=== PATIENT | male | born 1975 | race Caucasian/White ===

== ENCOUNTER → 2019-04-12 | Outpatient (CLI) | payer MEDICARE ==
[~2019-04-12] MED LIST: AMLODIPINE10 MG PO; AMLODIPINE5 MG PO; ATROVASTIN; DEPAKOTE DR500 MG PO; FENOFIBRATE134 MG PO; FENOGLIDE40 MG PO; HYDR25T PO; KEFLEX500 MG PO; LATU80TA PO; LIPITOR20 MG PO; LISINOPRIL10 MG PO; LOTREL 10 MG-201 CAP PO; LUVOX CR100 MG PO; NAVANE10 MG PO; OMEPRAZOLE D/R20 MG PO; REGLAN10 MG PO; THIOTHIXENE10 MG PO; TRAMADOL HCL50 MG PO; VALIUM10 MG PO; VITAMIN D1000 IU PO; VITAMIN D32000 IU PO; ZYPREXA20 MG PO
== END | disposition home or self-care (01) ==
LOC: US 03-09 13:30
DX: N43.2 Other hydrocele (principal); N43.42 Spermatocele of epididymis, multiple; N50.3 Cyst of epididymis

== ENCOUNTER 2023-06-18 08:04 | Emergency (ER) | payer MEDICARE, MEDICAID ==
[~2023-06-18] VITALS: Wt 77.1 kg
[2023-06-18 09:18] VITALS: BP 99/79
[2023-06-18] MEDS ORDERED: Ketorolac Tromethamine 60 MG/2 ML VIAL IM ONE (09:25)
[2023-06-18] MEDS ORDERED: ACETAMINOPHEN 325 MG TAB PO ONE (09:25)
[2023-06-18] MEDS ORDERED: CYCLOBENZAPRINE10 MG PO (10:55)
[2023-06-18] MEDS ORDERED: Motrin,Rufen800 MG PO (10:55)
== END 2023-06-18 11:04 | disposition home or self-care (01) ==
LOC: ED 08:04
DX: S46.912A Strain of unspecified muscle, fascia and tendon at shoulder and upper arm level, left arm, initial encounter (principal); I10 Essential (primary) hypertension; K21.9 Gastro-esophageal reflux disease without esophagitis; F31.9 Bipolar disorder, unspecified; Z88.0 Allergy status to penicillin; X58.XXXA Exposure to other specified factors, initial encounter; Y93.89 Activity, other specified; Y92.89 Other specified places as the place of occurrence of the external cause; Y99.8 Other external cause status

== ENCOUNTER → 2023-11-04 | Outpatient (CLI) | payer MEDICARE, MEDICAID ==
[~2023-11-04] MED LIST changes: +CYCLOBENZAPRINE10 MG PO; +Motrin,Rufen800 MG PO
[2023-11-04 17:42] LABS: POTASSIUM 3.8 mmol/L (3.4-5.1); TOTAL PROTEIN 7.4 gm/dL (6.0-8.0)
[2023-11-05 06:09] LABS: TOTAL PROTEIN, SERUM 7.1 g/dL (6.0-8.5)
[2023-11-05 13:07] LABS: A/G RATIO 1.1 (0.7-1.7); ALBUMIN 3.7 g/dL (2.9-4.4); ALPHA-1-GLOBULIN 0.2 g/dL (0.0-0.4); BETA GLOBULIN 1.1 g/dL (0.7-1.3); GAMMA GLOBULIN 1.1 g/dL (0.4-1.8); GLOBULIN, TOTAL 3.4 g/dL (2.2-3.9)
[2023-11-05 14:08] LABS: ANTI-DSDNA ANTIBODIES 6 IU/mL (0-9); ATYPICAL pANCA <1:20 titer (Neg:<1:20); CYTOPLASMIC (C-ANCA) <1:20 titer (Neg:<1:20); PERINUCLEAR (P-ANCA) <1:20 titer (Neg:<1:20)
[2023-11-05 16:09] LABS: FREE KAPPA LIGHT CHAINS 32.9 mg/L (3.3-19.4); FREE LAMBDA LIGHT CHAINS 62.4 mg/L (5.7-26.3); KAPPA/LAMBDA RATIO 0.53 (0.26-1.65)
[2023-11-06 20:06] LABS: ANTI MPO ANTIBODIES <0.2 units (0.0-0.9); ANTI PR3 ANTIBODIES <0.2 units (0.0-0.9)
[2023-11-07 11:07] LABS: ALBUMIN, URINE 84.5 % (.); ALPHA-1-GLOBULIN, URINE 1.7 % (.); ALPHA-2-GLOBULIN, URINE 1.4 % (.); BETA GLOBULIN, URINE 7.8 % (.); GAMMA GLOBULIN, URINE 4.6 % (.); M-SPIKE, % Not Observed % (Not Observed); PROTEIN,TOTAL - URINE RANDOM 280.3 mg/dL (Not Estab.)
== END | disposition home or self-care (01) ==
LOC: LAB 16:45
PROVIDERS: ATTEND Internal Medicine Nephrology
DX: E78.5 Hyperlipidemia, unspecified (principal); R80.9 Proteinuria, unspecified

== ENCOUNTER → 2023-11-07 | Outpatient (CLI) | payer MEDICARE, MEDICAID | END | disposition home or self-care (01) | LOC: US 01:01 | PROVIDERS: ATTEND Internal Medicine Nephrology | DX: N42.89 Other specified disorders of prostate (principal); N18.32 Chronic kidney disease, stage 3b; E83.9 Disorder of mineral metabolism, unspecified; N32.89 Other specified disorders of bladder; Z96.0 Presence of urogenital implants ==

== ENCOUNTER 2024-02-09 14:22 | Inpatient (IN) | payer MEDICARE ==
[~2024-02-09] VITALS: Ht 170.1 cm; Wt 73.7 kg
[2024-02-09 15:28] LABS: BASO # 0.1 10*3/uL (0.0-0.1); BASO % 0.7 % (0.0-1.0); EOS # 0.2 10*3/uL (0.0-0.4); EOS % 2.4 % (1.0-4.0); HEMATOCRIT 37.8 % (42.0-52.0); LYMPH # 2.5 10*3/uL (1.3-4.4); LYMPH % 30.5 % (27.0-41.0); MEAN CELL VOLUME 96.7 fl (80.0-94.0); MEAN CORPUSCULAR HGB 30.4 pg (27.0-31.0); MEAN CORPUSCULAR HGB CONC 31.5 g/dl (33.0-37.0); MONO # 0.6 10*3/uL (0.1-1.0); MONO % 6.6 % (3.0-9.0); NEUT % 59.7 % (47.0-73.0); PLATELET COUNT AUTOMATED 233 10*3/uL (130-400); RED BLOOD COUNT 3.91 10*6/uL (4.50-5.90); RED CELL DISTRI WIDTH 14.7 % (0-14.5); WHITE BLOOD COUNT 8.3 10*3/uL (4.8-10.8)
[2024-02-09 15:54] LABS: POTASSIUM 6.1 mmol/L (3.4-5.1)
[2024-02-09 16:04] LABS: VENOUS BLOOD GAS O2 SAT 99.1 % (60.0-85.0)
[2024-02-09] MEDS ORDERED: Albuterol Sulfate 2.5 MG/3 ML VIAL NEB ONE (16:05)
[2024-02-09] MEDS ORDERED: CALCIUM GLUCONATE 1 GM/10 ML VIAL IV ONE (16:05)
[2024-02-09] MEDS ORDERED: DEXTROSE 50% 25 GM/50 ML SYR IV ONE (16:05)
[2024-02-09] MEDS ORDERED: INSULIN REGULAR, HUMAN 1 UNIT/0.01 ML IV ONE (16:05)
[2024-02-09 17:05] VITALS: BP 120/70
[2024-02-09] MEDS ORDERED: ATORVASTATIN CA10 M1 PO (17:06)
[2024-02-09] MEDS ORDERED: ARIPIPRAZOLE15 MG PO (17:06)
[2024-02-09] MEDS ORDERED: LEVOTHYROXINE100 MC1 PO (17:06)
[2024-02-09] MEDS ORDERED: DIVALPROEX SOD500 M1 PO (17:07)
[2024-02-09] MEDS ORDERED: LISINOPRIL10 M1 PO (17:07)
[2024-02-09] MEDS ORDERED: BISACODYL 5 MG TAB PO PRN (17:10)
[2024-02-09] MEDS ORDERED: ACETAMINOPHEN 650 MG SUPP R PRN (17:10)
[2024-02-09] MEDS ORDERED: Magnesium Hydroxide 30 ML UDC PO PRN (17:10)
[2024-02-09] MEDS ORDERED: Ondansetron Hydrochloride 4 MG/2 ML VIAL IV PRN (17:10)
[2024-02-09] MEDS ORDERED: ACETAMINOPHEN 325 MG TAB PO PRN (17:10)
[2024-02-09] MEDS ORDERED: SODIUM POLYSTYRENE SULFONATE 15 GM/60 ML BOT PO ONE (17:30)
[2024-02-09 19:06] VITALS: BP 128/60
[2024-02-09 21:15] VITALS: BP 130/86
[2024-02-09] MEDS ORDERED: DIAZEPAM10 M1 PO (21:16)
[2024-02-09] MEDS ORDERED: LACTULOSE 20 GM/30 ML UDC PO ONE (22:40)
[2024-02-09] MEDS ORDERED: FUROSEMIDE 20 MG/2 ML VIAL IV ONE (22:40)
[2024-02-09] MEDS ORDERED: DIVALPROEX ER 500 MG TAB PO SCH (23:00)
[2024-02-09] MEDS ORDERED: ATORVASTATIN CALCIUM 10 MG TAB PO SCH (23:00)
[2024-02-09] MEDS ORDERED: DIAZEPAM 5 MG TAB PO SCH (23:00)
[2024-02-10] VITALS: BP 140/86
[2024-02-10 05:44] LABS: POTASSIUM 4.9 mmol/L (3.4-5.1); TOTAL PROTEIN 7.2 gm/dL (6.0-8.0)
[2024-02-10] MEDS ORDERED: Levothyroxine Sodium 100 MCG TAB PO SCH (06:00)
[2024-02-10 06:14] LABS: BASO % 0.5 % (0.0-1.0); EOS # 0.3 10*3/uL (0.0-0.4); EOS % 3.4 % (1.0-4.0); HEMATOCRIT 38.4 % (42.0-52.0); LYMPH # 2.4 10*3/uL (1.3-4.4); LYMPH % 28.7 % (27.0-41.0); MEAN CELL VOLUME 96.2 fl (80.0-94.0); MEAN CORPUSCULAR HGB 31.3 pg (27.0-31.0); MEAN CORPUSCULAR HGB CONC 32.6 g/dl (33.0-37.0); MEAN PLATELET VOLUME 9.5 fl (9.6-12.3); MONO # 0.6 10*3/uL (0.1-1.0); MONO % 7.3 % (3.0-9.0); NEUT % 59.9 % (47.0-73.0); PLATELET COUNT AUTOMATED 247 10*3/uL (130-400); RED BLOOD COUNT 3.99 10*6/uL (4.50-5.90); RED CELL DISTRI WIDTH 14.9 % (0-14.5); WHITE BLOOD COUNT 8.4 10*3/uL (4.8-10.8)
[2024-02-10 07:56] LABS: VITAMIN D, 25-HYDROXY 49.7 ng/mL (30-100)
[2024-02-10 08:00] VITALS: BP 172/68
[2024-02-10] MEDS ORDERED: Enoxaparin Sodium 40 MG/0.4 ML SYR SC SCH (10:00)
[2024-02-10] MEDS ORDERED: ARIPiprazole 15 MG TAB PO SCH (10:00)
[2024-02-10] MEDS ORDERED: ATORVASTATIN CALCIUM 10 MG TAB PO SCH ×2 (10:00→22:00)
[2024-02-10] MEDS ORDERED: Enoxaparin Sodium 30 MG/0.3 ML SYR SC SCH (10:00)
[2024-02-10] MEDS ORDERED: HYDROCHLOROTHIAZIDE 12.5 MG CAP PO SCH (10:00)
[2024-02-10] MEDS ORDERED: Vitamin D 1,000 IU TAB (25 MCG) PO SCH (10:00)
[2024-02-10 12:00] VITALS: BP 135/79
[2024-02-10] MEDS ORDERED: CALCIUM ACETATE 667 MG CAP PO SCH (12:00)
[2024-02-10] MEDS ORDERED: HYDR12.5C PO (12:24)
[2024-02-10] MEDS ORDERED: CALCIUM ACETAT667 M3 PO (12:24)
== END 2024-02-10 13:51 | disposition home or self-care (01) | DRG 641 ==
LOC: ED 14:22 → 4E 17:00 → EDHOLD 17:00 → 4E 18:58
PROVIDERS: Physician Assistant Medical; Student in an Organized Health Care Education/Training Program; ADMIT Internal Medicine; ATTEND Internal Medicine
DX: E87.5 Hyperkalemia (principal); F31.12 Bipolar disorder, current episode manic without psychotic features, moderate; N18.32 Chronic kidney disease, stage 3b; E87.1 Hypo-osmolality and hyponatremia; D53.9 Nutritional anemia, unspecified; F12.90 Cannabis use, unspecified, uncomplicated; E11.22 Type 2 diabetes mellitus with diabetic chronic kidney disease; F17.210 Nicotine dependence, cigarettes, uncomplicated; E03.9 Hypothyroidism, unspecified; E78.5 Hyperlipidemia, unspecified; S46.911A Strain of unspecified muscle, fascia and tendon at shoulder and upper arm level, right arm, initial encounter; I12.9 Hypertensive chronic kidney disease with stage 1 through stage 4 chronic kidney disease, or unspecified chronic kidney disease; Z88.0 Allergy status to penicillin; Z81.1 Family history of alcohol abuse and dependence; Z81.8 Family history of other mental and behavioral disorders; X58.XXXA Exposure to other specified factors, initial encounter; Y93.89 Activity, other specified; Y92.89 Other specified places as the place of occurrence of the external cause; Y99.8 Other external cause status

== ENCOUNTER → 2024-02-12 | Outpatient (CLI) | payer MEDICARE, MEDICAID ==
[~2024-02-12] MED LIST changes: +ARIPIPRAZOLE15 MG PO; +ATORVASTATIN CA10 M1 PO; +CALCIUM ACETAT667 M3 PO; +DIAZEPAM10 M1 PO; +DIVALPROEX SOD500 M1 PO; +HYDR12.5C PO; +LEVOTHYROXINE100 MC1 PO; +LISINOPRIL10 M1 PO
== END | disposition home or self-care (01) ==
LOC: US 01:40
PROVIDERS: ATTEND Internal Medicine Nephrology
DX: N42.89 Other specified disorders of prostate (principal); N18.4 Chronic kidney disease, stage 4 (severe)

== ENCOUNTER → 2024-03-09 | Outpatient (CLI) | payer MEDICARE, MEDICAID | END | disposition home or self-care (01) | LOC: LAB 17:36 | PROVIDERS: ATTEND Internal Medicine Nephrology | DX: N18.32 Chronic kidney disease, stage 3b (principal); E87.5 Hyperkalemia; E83.39 Other disorders of phosphorus metabolism ==

== ENCOUNTER → 2024-04-14 | Outpatient (CLI) | payer MEDICARE ==
[2024-04-14] VITALS (7 sets, daily range): BP systolic 113–133; BP diastolic 69–91
[~2024-04-14] MED LIST changes: +Lidocaine Hydrochloride 5 ML AMP ONE; +SODIUM BICARBONATE 4.2% 5 ML VIAL ONE
[2024-04-14 08:24] LABS: ACT PARTIAL THROMBO TIME 27.9 SECONDS (20.0-32.1)
== END | disposition home or self-care (01) ==
LOC: SDC 09:00 → EDSTATUS 09:00
PROVIDERS: Radiology Diagnostic Radiology; ATTEND Internal Medicine Nephrology
DX: I12.9 Hypertensive chronic kidney disease with stage 1 through stage 4 chronic kidney disease, or unspecified chronic kidney disease (principal); N18.4 Chronic kidney disease, stage 4 (severe); R80.9 Proteinuria, unspecified; K21.9 Gastro-esophageal reflux disease without esophagitis; F31.9 Bipolar disorder, unspecified; Z98.890 Other specified postprocedural states; Z79.899 Other long term (current) drug therapy; Z80.3 Family history of malignant neoplasm of breast

== ENCOUNTER → 2024-05-06 | Outpatient (CLI) | payer MEDICARE ==
[~2024-05-06] MED LIST changes: -Lidocaine Hydrochloride 5 ML AMP ONE; -SODIUM BICARBONATE 4.2% 5 ML VIAL ONE
== END | disposition home or self-care (01) ==
LOC: US 02:25
PROVIDERS: ATTEND Internal Medicine Nephrology
DX: N18.32 Chronic kidney disease, stage 3b (principal)

== ENCOUNTER → 2024-09-29 | Outpatient (CLI) | payer MEDICARE ==
[2024-09-29 15:33] LABS: BASO % 0.5 % (0.0-1.0); EOS # 0.2 10*3/uL (0.0-0.4); EOS % 2.7 % (1.0-4.0); HEMATOCRIT 44.3 % (42.0-52.0); MEAN CELL VOLUME 92.9 fl (80.0-94.0); MEAN CORPUSCULAR HGB CONC 32.3 g/dl (33.0-37.0); MONO # 0.5 10*3/uL (0.1-1.0); MONO % 6.5 % (3.0-9.0); NEUT # 4.4 10*3/uL (2.3-7.9); NEUT % 53.7 % (47.0-73.0); PLATELET COUNT AUTOMATED 293 10*3/uL (130-400); RED BLOOD COUNT 4.77 10*6/uL (4.50-5.90); RED CELL DISTRI WIDTH 13.7 % (0-14.5); WHITE BLOOD COUNT 8.2 10*3/uL (4.8-10.8)
[2024-09-29 16:04] LABS: FREE T4 1.21 ng/dl (0.89-1.76); POTASSIUM 4.3 mmol/L (3.4-5.1); TOTAL PROTEIN 7.1 gm/dL (6.0-8.0)
== END | disposition home or self-care (01) ==
LOC: LAB 14:42
PROVIDERS: ATTEND Nurse Practitioner Family
DX: S46.912A Strain of unspecified muscle, fascia and tendon at shoulder and upper arm level, left arm, initial encounter (principal); I10 Essential (primary) hypertension; E03.9 Hypothyroidism, unspecified; E78.2 Mixed hyperlipidemia; F31.81 Bipolar II disorder; X58.XXXA Exposure to other specified factors, initial encounter; Y93.89 Activity, other specified; Y92.89 Other specified places as the place of occurrence of the external cause; Y99.8 Other external cause status